=== PATIENT | female | born 2000 | race Caucasian/White ===

== ENCOUNTER → 2021-08-23 | Outpatient (CLI) | payer BC ==
[~2021-08-23] MED LIST: NIKKI 3 MG-0.01 EACH PO; NORCO 5-325 TA1 EACH PO
[2021-08-24 11:11] LABS: HEMOGLOBIN 15.2 gm/dl (12.3-15.3); RED BLOOD COUNT 4.91 M/UL (4.00-5.10); WHITE BLOOD COUNT 4.3 K/UL (4.5-11.0)
[2021-08-24 11:39] LABS: BUN/CREATININE RATIO 9 (0-10)
== END ==
LOC: LBRF 13:19
PROVIDERS: Nurse Practitioner Family
DX: R10.9 Unspecified abdominal pain (principal); R19.7 Diarrhea, unspecified; R53.83 Other fatigue
CPT/HCPCS: 80053; 82150; 83690; 84439; 84443; 85025; 85652